=== PATIENT | male | born 1990 | race Caucasian/White ===

== ENCOUNTER 2017-07-20 06:56 | Emergency (ER) | payer MEDICAID ==
[~2017-07-20] VITALS: Ht 180.3 cm; Wt 81.8 kg
[2017-07-20] MEDS: HYDROCODONE/ACETAMINOPHEN 5-325 MG TABLET PO ONE (07:16)
[2017-07-20] MEDS: IBUPROFEN 600 MG TABLET PO ONE (07:17)
[2017-07-20] MEDS: AZITHROMYCIN 250 MG TABLET PO ONE (08:11)
[2017-07-20] MEDS: CefTRIAXone SODIUM 1 GM/VIAL IM ONE (08:11)
[2017-07-20 08:54] VITALS: BP 122/52
== END 2017-07-20 09:04 | disposition home or self-care (01) ==
LOC: EMS 07:00
DX: N45.1 Epididymitis (principal); F15.10 Other stimulant abuse, uncomplicated; F17.210 Nicotine dependence, cigarettes, uncomplicated; F12.10 Cannabis abuse, uncomplicated
CPT/HCPCS: 76870; 96372; 99284; 99406; J0696